=== PATIENT | female | born 1970 | race Two or more races ===

== ENCOUNTER 2024-12-02 14:23 | Emergency (ER) | payer OTHER ==
[~2024-12-02] VITALS: Ht 152.4 cm; Wt 54.4 kg
[2024-12-02] MEDS ORDERED: SYNTHROID50 MCG PO (15:27)
[2024-12-02] MEDS ORDERED: SUMATRIPTAN SUCCINATE 6 MG/0.5 ML VIAL SUBCUTANEO ONE ×2 (16:45→17:28)
[2024-12-02] MEDS ORDERED: FAMOtidine 10 MG/ML (4ML VIAL) IV ONE (16:45)
[2024-12-02] MEDS ORDERED: ONDANSETRON HCL 2 MG/ML VIAL IV ONE (16:45)
[2024-12-02] MEDS ORDERED: DIPHENHYDRAMINE HCL 50 MG/ML VIAL 1ML IV ONE (16:45)
[2024-12-02] MEDS ORDERED: 0.9 % SODIUM CHLORIDE 1,000 ML IV ONE (16:45)
[2024-12-02] MEDS ORDERED: FAMOTIDINE/PF 20 MG/2 ML VIAL ONE (17:28)
[2024-12-02] MEDS ORDERED: ONDANSETRON HCL 2 MG/ML VIAL ONE (17:28)
[2024-12-02] MEDS ORDERED: DIPHENHYDRAMINE HCL 50 MG/ML VIAL 1ML ONE (17:28)
[2024-12-02 18:20] LABS: BASO % 0.5 % (0.1-1.2); EOS # 0.12 (0.04-0.54); EOS % 1.3 % (0.7-7.0); LYMPH # 1.42 (1.18-3.74); LYMPH % 14.8 % (19.3-53.1); MEAN PLATELET VOLUME 9.60 fl (9.4-12.4); MONO # 0.37 (0.24-0.82); MONO % 3.9 % (4.7-12.5); NEUT # 7.61 (1.56-6.13); NEUT % 79.2 % (34.0-71.1); RED CELL DISTRIBUTION WIDTH 13.3 % (11.6-14.4)
[2024-12-02 18:55] LABS: COVID-19 AG NEGATIVE (NEGATIVE)
[2024-12-02 18:56] LABS: ALT/SGPT 143.0 U/L (12-78); AST/SGOT 61.0 U/L (15-37); BILIRUBIN TOTAL 0.27 mg/dL (0.3-1.2); BUN CREA RATIO 6.0 (7.0-25.0); CREATININE SERUM 0.72 mg/dL (0.55-1.02); GFR 83.79; GLOBULINA 4.2 G/DL (2.4-3.5); GLUCOSE FASTING 122.0 mg/dL (65-100); OSMOLALITY SERUM 272.0 MOSM/KG (275-295)
[2024-12-02 19:16] LABS: INR 0.99
[2024-12-02 19:28] LABS: URINE APPEARANCE Clear; URINE BILIRRUBIN Negative (NEGATIVE); URINE BLOOD Trace; URINE COLOR Yellow; URINE GLUCOSE Negative (NEGATIVE); URINE KETONE Negative (NEGATIVE); URINE LEUKOCYTE Negative; URINE NITRATE Negative; URINE PROTEIN Negative (NEGATIVE); URINE UROBILINOGEN 0.2 E.U./dl
[2024-12-02 19:32] LABS: URINE BACTERIA 181.0 uL (0.0-1933); URINE EPITHELIAL CELLS 12.7 uL (0.0-38.8); URINE RBC 3.3 uL (0.0-20.8); URINE WBC 13.0 uL (0.0-23.2)
[2024-12-02 19:52] LABS: URINE CAST 0.00 uL (0.0-1.40)
[2024-12-02] MEDS ORDERED: ZOFRAN8 MG PO (20:48)
[2024-12-02] MEDS ORDERED: PEPCID AC20 MG PO (20:48)
[2024-12-02] MEDS ORDERED: RIZATRIPTAN5 MG PO (20:48)
== END 2024-12-02 22:28 | disposition home or self-care (01) ==
LOC: ER 14:23
PROVIDERS: General Practice
DX: G43.909 Migraine, unspecified, not intractable, without status migrainosus (principal); R11.2 Nausea with vomiting, unspecified; R42 Dizziness and giddiness; Z20.822 Contact with and (suspected) exposure to COVID-19; E03.8 Other specified hypothyroidism; Z88.0 Allergy status to penicillin
CPT/HCPCS: 36415; 70460; Q9965